=== PATIENT | female | born 1935 | race Two or more races ===

== ENCOUNTER → 2016-07-02 | Outpatient (CLI) | payer OTHER ==
[~2016-07-02] VITALS: Ht 154.9 cm; Wt 76.0 kg
[~2016-07-02] MED LIST: ADENOSINE 64 MG in GIVE UN-DILUTED 0 ML IV STA; ALBUTEROL SULF 2.5 MG/0.5ML(0.5%) NEB SOLN NEB ONE; ALBUTEROL SULF 2.5 MG/0.5ML(0.5%) NEB SOLN ONE; AMINOPHYLLINE 250 MG/10 ML VL IV ONE; AMINOPHYLLINE IV ONE; D5W 5% IV ONE; IPRATROPIUM BROM 0.5 MG/2.5ML INH SOL NEB ONE; IPRATROPIUM BROM 0.5 MG/2.5ML INH SOL ONE; LISI10TA6 PO; NEO500T PO; [UNRECOGNIZED DRUG - CODE] PO
== END | disposition home or self-care (01) ==
LOC: XY 08:14
PROVIDERS: ATTEND Internal Medicine Cardiovascular Disease
DX: I70.0 Atherosclerosis of aorta (principal); I31.3 Pericardial effusion (noninflammatory)
CPT/HCPCS: 78452; 93017; 93306; A9500; J0153; J0280

== ENCOUNTER 2016-08-10 08:22 | Emergency (ER) | payer OTHER ==
[~2016-08-10] VITALS: Ht 152.4 cm; Wt 70.3 kg
[~2016-08-10 08:22] MED LIST changes: -ADENOSINE 64 MG in GIVE UN-DILUTED 0 ML IV STA; -ALBUTEROL SULF 2.5 MG/0.5ML(0.5%) NEB SOLN NEB ONE; -ALBUTEROL SULF 2.5 MG/0.5ML(0.5%) NEB SOLN ONE; -AMINOPHYLLINE 250 MG/10 ML VL IV ONE; -AMINOPHYLLINE IV ONE; -D5W 5% IV ONE; -IPRATROPIUM BROM 0.5 MG/2.5ML INH SOL NEB ONE; -IPRATROPIUM BROM 0.5 MG/2.5ML INH SOL ONE
[2016-08-10 09:16] LABS: Basophils # (auto) 0.1 uL; Basophils % (auto) 0.7 % (0.0-2.0); CONDITION AutoValidated; Eosinophils # (auto) 0 uL; Eosinophils % (auto) 0.3 % (0.0-7.0); Hematocrit 43.8 % (36.0-46.0); Hemoglobin 14.4 g/dL (12.2-16.2); Lymphocytes # (auto) 2.6 uL; Lymphocytes % (auto) 22.9 % (10.0-50.0); Mean Corpuscular Hemoglobin 30.6 pg (28.0-32.0); Mean Corpuscular Volume 92.8 fL (80.0-100.0); Mean Platelet Volume 7.6 fL (7.4-10.4); Monocytes # (auto) 0.7 uL; Monocytes % (auto) 6.3 % (0.0-12.0); Neutrophils # (auto) 8.1 uL; Neutrophils % (auto) 69.8 % (37.0-80.0); Platelet Count (auto) 258 10^3/uL (140-450); White Blood Cell 11.6 10^3/uL (4.4-10.8)
[2016-08-10 09:35] LABS: Amylase 37 U/L (25-115)
[2016-08-10 09:41] LABS: Albumin 3.6 g/dL (3.4-5.0); Alkaline Phosphatase 54 U/L (45-117); Anion Gap 8 (5-15); Aspartate Aminotransferase 11 U/L (15-37); BUN/Creatinine Ratio 32.8; Bilirubin, Total 0.3 mg/dL (0.2-1.0); Blood Urea Nitrogen 21 mg/dL (7-18); Calcium 9.2 mg/dL (8.5-10.1); Carbon Dioxide 28 mmol/L (21-32); Chloride 105 mmol/L (98-107); GFR African American 115 mL/min; GFR Non-African American 95 mL/min; Glucose 96 mg/dL (74-106); Sodium 141 mmol/L (136-145); Total Protein 7.6 g/dL (6.4-8.2)
[2016-08-10] MEDS ORDERED: cloNIDine HCL 0.1 MG TAB PO ONE (11:00)
[2016-08-10] MEDS ORDERED: HYDROcodone-ACET 5/325MG TAB PO ONE (11:15)
[2016-08-10 12:27] LABS: Urine Bilirubin Negative (Negative); Urine Blood Negative /uL (Negative); Urine Color Yellow (Yellow); Urine Glucose Normal (Normal); Urine Ketone Negative (Negative); Urine Nitrite Negative (Negative); Urine RBC 1 /hpf (0 - 4); Urine Squamous Epithelial Cell FEW /hpf (<5); Urine Urobilinogen Normal (Negative); Urine pH 6.5 (5.0-8.0)
[2016-08-10] MEDS ORDERED: SODIUM CHLORIDE 0.9% 500 ML IV ONE (12:45)
[2016-08-10] MEDS ORDERED: cefTRIAXone 1GM/50ML D5W 50 ML IV ONE (12:45)
[2016-08-10 14:00] VITALS: BP 126/54
== END 2016-08-10 15:09 | disposition home or self-care (01) ==
LOC: ER 08:22
DX: S39.011A Strain of muscle, fascia and tendon of abdomen, initial encounter (principal); M19.90 Unspecified osteoarthritis, unspecified site; E78.5 Hyperlipidemia, unspecified; I10 Essential (primary) hypertension; Z88.1 Allergy status to other antibiotic agents; Z79.899 Other long term (current) drug therapy; X58.XXXA Exposure to other specified factors, initial encounter; Y93.89 Activity, other specified; Y92.89 Other specified places as the place of occurrence of the external cause; Y99.8 Other external cause status
CPT/HCPCS: 36415; 71010; 74176; 80053; 81001; 82150; 83690; 84484; 85025; 93005; 96365; 99285; J0696; J7030; J7040

== ENCOUNTER 2016-10-27 21:32 | Emergency (ER) | payer OTHER ==
[~2016-10-27] VITALS: Ht 152.4 cm; Wt 68.0 kg
[2016-10-27] MEDS ORDERED: cloNIDine HCL 0.1 MG TAB PO ONE (22:00)
[2016-10-27 22:33] LABS: Basophils # (auto) 0.1 uL; Basophils % (auto) 0.8 % (0.0-2.0); CONDITION Y; Eosinophils # (auto) 0.1 uL; Eosinophils % (auto) 1.2 % (0.0-7.0); Hemoglobin 14.4 g/dL (12.2-16.2); Lymphocytes # (auto) 3.3 uL; Lymphocytes % (auto) 31.9 % (10.0-50.0); Mean Corpuscular Hemoglobin 31.1 pg (28.0-32.0); Mean Corpuscular Hgb Conc. 33.5 g/dL (32.0-36.0); Mean Corpuscular Volume 93.1 fL (80.0-100.0); Mean Platelet Volume 7.8 fL (7.4-10.4); Monocytes # (auto) 0.9 uL; Monocytes % (auto) 8.3 % (0.0-12.0); Neutrophils # (auto) 5.9 uL; Neutrophils % (auto) 57.8 % (37.0-80.0); Platelet Count (auto) 309 10^3/uL (140-450); White Blood Cell 10.3 10^3/uL (4.4-10.8)
[2016-10-27 22:56] LABS: Albumin 3.6 g/dL (3.4-5.0); Anion Gap 6 (5-15); Aspartate Aminotransferase 8 U/L (15-37); BUN/Creatinine Ratio 19.6; Blood Urea Nitrogen 18 mg/dL (7-18); Calcium 9.1 mg/dL (8.5-10.1); Carbon Dioxide 29 mmol/L (21-32); Chloride 110 mmol/L (98-107); GFR African American 76 mL/min; GFR Non-African American 62 mL/min; Glucose 126 mg/dL (74-106); Potassium 3.7 mmol/L (3.5-5.1); Sodium 145 mmol/L (136-145)
[2016-10-27 23:11] LABS: Alkaline Phosphatase 68 U/L (45-117); Bilirubin, Total 0.2 mg/dL (0.2-1.0); Total Protein 7.4 g/dL (6.4-8.2)
[2016-10-28] MEDS ORDERED: HYDROcodone-ACET 7.5/325MG TAB PO ONE (01:15)
[2016-10-28 01:34] VITALS: BP 158/87
== END 2016-10-28 01:43 | disposition home or self-care (01) ==
LOC: ER 21:37
DX: I10 Essential (primary) hypertension (principal); M19.90 Unspecified osteoarthritis, unspecified site; E78.5 Hyperlipidemia, unspecified; R53.1 Weakness; M25.511 Pain in right shoulder; Z90.49 Acquired absence of other specified parts of digestive tract; Z88.1 Allergy status to other antibiotic agents; Z90.710 Acquired absence of both cervix and uterus; Z79.899 Other long term (current) drug therapy; R42 Dizziness and giddiness
CPT/HCPCS: 36415; 70450; 71020; 80053; 84484; 85025; 93005

== ENCOUNTER → 2017-02-10 | Outpatient (CLI) | payer OTHER ==
[2017-02-10 09:55] LABS: Urine RBC None Seen /hpf (0 - 4)
[2017-02-10 10:14] LABS: Urine Bilirubin Negative (Negative); Urine Blood Negative /uL (Negative); Urine Color Yellow (Yellow); Urine Glucose Normal (Normal); Urine Ketone Negative (Negative); Urine Mucus FEW (None Seen); Urine Nitrite Negative (Negative); Urine Squamous Epithelial Cell FEW /hpf (<5); Urine Urobilinogen Normal (Negative); Urine pH 6.5 (5.0-8.0)
[2017-02-10 10:23] LABS: Cholesterol 222 mg/dL (< 200); HDL Cholesterol 51 mg/dL (40-59); LDL Cholesterol 155 mg/dL (< 100); Triglycerides 168 mg/dL (< 150)
== END | disposition home or self-care (01) ==
LOC: LAB 09:36
PROVIDERS: ATTEND Internal Medicine
DX: I10 Essential (primary) hypertension (principal); R35.1 Nocturia; R53.83 Other fatigue
CPT/HCPCS: 36415; 80061; 81001; 82043; 83036; 84439; 84443

== ENCOUNTER → 2017-06-02 | Outpatient (CLI) | payer OTHER ==
[2017-06-02 10:09] LABS: BUN/Creatinine Ratio 28.1; Potassium 4.5 mmol/L (3.5-5.1)
[2017-06-02 10:10] LABS: Albumin 3.7 g/dL (3.4-5.0); Bilirubin, Total 0.4 mg/dL (0.2-1.0); Calcium 9.2 mg/dL (8.5-10.1)
== END | disposition home or self-care (01) ==
LOC: LAB 09:13
PROVIDERS: ATTEND Internal Medicine
DX: E78.00 Pure hypercholesterolemia, unspecified (principal); R73.03 Prediabetes; I10 Essential (primary) hypertension; J45.909 Unspecified asthma, uncomplicated
CPT/HCPCS: 36415; 80053; 80061; 82607; 83036

== ENCOUNTER → 2017-10-01 | Outpatient (CLI) | payer OTHER | END | disposition home or self-care (01) | LOC: XYW 11:16 | PROVIDERS: ATTEND Internal Medicine | DX: I11.0 Hypertensive heart disease with heart failure (principal); I50.9 Heart failure, unspecified; E78.5 Hyperlipidemia, unspecified; Z88.8 Allergy status to other drugs, medicaments and biological substances | CPT/HCPCS: 93306 ==

== ENCOUNTER → 2017-10-31 | Outpatient (CLI) | payer OTHER ==
[2017-10-31 12:41] LABS: Basophils # (auto) 0.1 uL; Eosinophils # (auto) 0.1 uL; Eosinophils % (auto) 0.8 % (0.0-7.0); Hematocrit 46.5 % (36.0-46.0); Hemoglobin 15.4 g/dL (12.2-16.2); Lymphocytes # (auto) 2.4 uL; Lymphocytes % (auto) 26.9 % (10.0-50.0); Mean Corpuscular Hemoglobin 30.8 pg (28.0-32.0); Mean Corpuscular Hgb Conc. 33.1 g/dL (32.0-36.0); Mean Corpuscular Volume 93.1 fL (80.0-100.0); Monocytes # (auto) 0.8 uL; Neutrophils # (auto) 5.5 uL; Neutrophils % (auto) 62.3 % (37.0-80.0); Platelet Count (auto) 256 10^3/uL (140-450); Red Blood Cells 4.99 10^6/uL (4.0-5.20); Red Cell Distribution Width 14.1 % (11.8-14.3); White Blood Cell 8.9 10^3/uL (4.4-10.8)
[2017-10-31 13:28] LABS: Albumin 3.9 g/dL (3.4-5.0); BUN/Creatinine Ratio 22.4; Bilirubin, Total 0.3 mg/dL (0.2-1.0); Calcium 9.1 mg/dL (8.5-10.1); Potassium 4.4 mmol/L (3.5-5.1); Total Protein 8.3 g/dL (6.4-8.2)
== END | disposition home or self-care (01) ==
LOC: LAB 12:02
PROVIDERS: ATTEND Internal Medicine
DX: I11.0 Hypertensive heart disease with heart failure (principal); I50.32 Chronic diastolic (congestive) heart failure; E78.5 Hyperlipidemia, unspecified; Z90.710 Acquired absence of both cervix and uterus
CPT/HCPCS: 36415; 80053; 83880; 84439; 84443; 85025

== ENCOUNTER 2018-05-22 07:09 | Emergency (ER) | payer OTHER ==
[~2018-05-22] VITALS: Ht 152.4 cm; Wt 72.6 kg
[~2018-05-22 07:09] MED LIST changes: +ALBUAER3 IN; +AMLO5TAB13 PO; +ATOR10TA PO; +GABA100C9 PO; +MELO1TAB73 PO; +METO-169 PO; -NEO500T PO; +PANT40TA2 PO; -[UNRECOGNIZED DRUG - CODE] PO
[2018-05-22 07:20] VITALS: BP 135/52
[2018-05-22] MEDS ORDERED: methylPREDNISolone SOD SUCC 125 MG/2 ML VL IM ONE (08:45)
[2018-05-22] MEDS ORDERED: cefTRIAXone SOD 1,000 MG VL IM ONE (08:45)
[2018-05-22] MEDS ORDERED: ALBUTEROL SULF 2.5 MG/0.5ML(0.5%) NEB SOLN NEB ONE (08:45)
[2018-05-22] MEDS ORDERED: IPRATROPIUM BROM 0.5 MG/2.5ML INH SOL NEB ONE (08:45)
== END 2018-05-22 09:39 | disposition home or self-care (01) ==
LOC: ER 07:09
DX: J20.9 Acute bronchitis, unspecified (principal); H66.93 Otitis media, unspecified, bilateral; J02.9 Acute pharyngitis, unspecified; J44.9 Chronic obstructive pulmonary disease, unspecified; E78.5 Hyperlipidemia, unspecified; I10 Essential (primary) hypertension; Z90.710 Acquired absence of both cervix and uterus
CPT/HCPCS: 71046; 94640; 96372; 99283; J0696; J2930; J7611; J7644; 93005

== ENCOUNTER → 2018-12-07 | Outpatient (CLI) | payer MEDICARE, OTHER ==
[~2018-12-07] MED LIST changes: -AMLO5TAB13 PO; +AMLO5TAB15 PO
[2018-12-07 13:49] LABS: Basophils # (auto) 0.1 uL; Basophils % (auto) 1.2 % (0.0-2.0); Eosinophils # (auto) 0.1 uL; Eosinophils % (auto) 0.7 % (0.0-7.0); Hematocrit 47.3 % (36.0-46.0); Hemoglobin 15.4 g/dL (12.2-16.2); Lymphocytes # (auto) 2.5 uL; Lymphocytes % (auto) 27.6 % (10.0-50.0); Mean Corpuscular Hemoglobin 30.7 pg (28.0-32.0); Mean Corpuscular Hgb Conc. 32.6 g/dL (32.0-36.0); Mean Corpuscular Volume 94.4 fL (80.0-100.0); Monocytes # (auto) 0.7 uL; Neutrophils # (auto) 5.7 uL; Neutrophils % (auto) 62.5 % (37.0-80.0); Platelet Count (auto) 242 10^3/uL (140-450); Red Cell Distribution Width 14.2 % (11.8-14.3); White Blood Cell 9.2 10^3/uL (4.4-10.8)
[2018-12-07 15:08] LABS: Albumin 3.6 g/dL (3.4-5.0); BUN/Creatinine Ratio 30.1; Potassium 4.1 mmol/L (3.5-5.1)
[2018-12-07 15:12] LABS: Bilirubin, Total 0.3 mg/dL (0.2-1.0); Total Protein 7.7 g/dL (6.4-8.2)
== END | disposition home or self-care (01) ==
LOC: LAB 13:28
PROVIDERS: ATTEND Internal Medicine
DX: I10 Essential (primary) hypertension (principal); R06.09 Other forms of dyspnea
CPT/HCPCS: 36415; 80053; 83880; 84439; 84443; 85025; 85652

== ENCOUNTER → 2019-07-20 | Outpatient (CLI) | payer MEDICARE, OTHER ==
[~2019-07-20] MED LIST changes: +ALBUTEROL SULF 2.5 MG/0.5ML(0.5%) NEB SOLN ONE
== END | disposition home or self-care (01) ==
LOC: RT 09:06
PROVIDERS: ATTEND Internal Medicine
DX: R06.09 Other forms of dyspnea (principal)
CPT/HCPCS: 94060

== ENCOUNTER → 2019-10-26 | Outpatient (CLI) | payer MEDICARE, OTHER ==
[~2019-10-26] MED LIST changes: -ALBUTEROL SULF 2.5 MG/0.5ML(0.5%) NEB SOLN ONE; +LISI-648 PO; -LISI10TA6 PO
== END | disposition home or self-care (01) ==
LOC: LAB 14:39
PROVIDERS: ATTEND Internal Medicine Pulmonary Disease
DX: R06.09 Other forms of dyspnea (principal)

== ENCOUNTER → 2019-12-07 | Outpatient (CLI) | payer MEDICARE, OTHER ==
[2019-12-07 09:59] LABS: Basophils # (auto) 0.1 10 ^3/uL (0-0.2); Eosinophils # (auto) 0 10 ^3/uL (0-0.8); Eosinophils % (auto) 0.7 % (0.0-7.0); Hematocrit 46.8 % (36.0-46.0); Hemoglobin 15.6 g/dL (12.2-16.2); Lymphocytes # (auto) 2.4 10 ^3/uL (0.4-5.4); Lymphocytes % (auto) 32.2 % (10.0-50.0); Mean Corpuscular Hemoglobin 31.6 pg (28.0-32.0); Mean Corpuscular Hgb Conc. 33.2 g/dL (32.0-36.0); Mean Corpuscular Volume 95.1 fL (80.0-100.0); Monocytes # (auto) 0.7 10 ^3/uL (0-1.3); Monocytes % (auto) 8.8 % (0.0-12.0); Neutrophils # (auto) 4.4 10 ^3/uL (1.6-8.6); Neutrophils % (auto) 57.3 % (37.0-80.0); Nucleated Red Blood Cells % 0.1 %; Platelet Count (auto) 262 10^3/uL (140-450); Red Blood Cells 4.92 10^6/uL (4.0-5.20); Red Cell Distribution Width 14.3 % (11.8-14.3); White Blood Cell 7.6 10^3/uL (4.4-10.8)
[2019-12-07 10:04] LABS: Urine Bacteria NONE SEEN /hpf (None Seen); Urine Blood Negative /uL (Negative); Urine Hyaline Cast FEW /lpf (0 - 2); Urine Specific Gravity 1.004 (1.001-1.035); Urine WBC <1 /hpf (0 - 5)
[2019-12-07 10:55] LABS: Albumin 3.8 g/dL (3.4-5.0); Potassium 4.6 mmol/L (3.5-5.1)
[2019-12-07 11:03] LABS: BUN/Creatinine Ratio 29.1; Bilirubin, Total 0.4 mg/dL (0.2-1.0); Calcium 9.7 mg/dL (8.5-10.1); Total Protein 7.8 g/dL (6.4-8.2)
== END | disposition home or self-care (01) ==
LOC: LAB 09:25
PROVIDERS: ATTEND Internal Medicine
DX: I10 Essential (primary) hypertension (principal); J44.9 Chronic obstructive pulmonary disease, unspecified
CPT/HCPCS: 36415; 80053; 80061; 81001; 84439; 84443; 85025; 85652

== ENCOUNTER → 2019-12-20 | Outpatient (CLI) | payer MEDICARE, OTHER ==
[2019-12-20 12:34] LABS: CRP High Sensitivity 1.11 mg/dL (< 0.3)
== END | disposition home or self-care (01) ==
LOC: LAB 11:06
PROVIDERS: ATTEND Internal Medicine Rheumatology
DX: M79.7 Fibromyalgia (principal); M06.4 Inflammatory polyarthropathy; M15.0 Primary generalized (osteo)arthritis
CPT/HCPCS: 36415; 82550; 85652; 86038; 86141; 86200; 86431

== ENCOUNTER 2020-11-10 23:24 | Inpatient (IN) | payer MEDICARE, OTHER ==
[~2020-11-10] VITALS: Ht 152.4 cm; Wt 71.1 kg
[~2020-11-10 23:24] MED LIST changes: +AMLO-489 PO; -AMLO5TAB15 PO; -LISI-648 PO; +LISI-716 PO; -METO-169 PO; +METO-289 PO
[2020-11-10] MEDS ORDERED: ALBUTEROL SULF 2.5 MG/0.5ML(0.5%) NEB SOLN NEB ONE (23:45)
[2020-11-10] MEDS ORDERED: DexAMETHasone SOD PHOS 10MG/1ML VIAL INJ IV ONE (23:45)
[2020-11-11 00:36] LABS: Basophils # (auto) 0.1 10 ^3/uL (0-0.2); Basophils % (auto) 1.3 % (0.0-2.0); Eosinophils # (auto) 0.2 10 ^3/uL (0-0.8); Eosinophils % (auto) 3.4 % (0.0-7.0); Hematocrit 32.6 % (36.0-46.0); Hemoglobin 10.9 g/dL (12.2-16.2); Lymphocytes # (auto) 1.3 10 ^3/uL (0.4-5.4); Lymphocytes % (auto) 18.1 % (10.0-50.0); Mean Corpuscular Hemoglobin 31.5 pg (28.0-32.0); Mean Corpuscular Hgb Conc. 33.4 g/dL (32.0-36.0); Mean Corpuscular Volume 94.4 fL (80.0-100.0); Monocytes # (auto) 0.7 10 ^3/uL (0-1.3); Monocytes % (auto) 9.4 % (0.0-12.0); Neutrophils # (auto) 4.9 10 ^3/uL (1.6-8.6); Neutrophils % (auto) 67.8 % (37.0-80.0); Nucleated Red Blood Cells % 0.1 %; Red Blood Cells 3.45 10^6/uL (4.0-5.20); White Blood Cell 7.2 10^3/uL (4.4-10.8)
[2020-11-11 00:39] LABS: Albumin 3.2 g/dL (3.4-5.0); Anion Gap 6 (5-15); BUN/Creatinine Ratio 29.7; Blood Urea Nitrogen 19 mg/dL (7-18); Carbon Dioxide 31 mmol/L (21-32); Chloride 103 mmol/L (98-107); GFR African American 114 mL/min; GFR Non-African American 94 mL/min; Glucose 124 mg/dL (74-106); Lipase 141 U/L (73-393); Potassium 4.3 mmol/L (3.5-5.1); Sodium 140 mmol/L (136-145)
[2020-11-11 00:45] LABS: Alanine Aminotransferase 19 U/L (13-56); Alkaline Phosphatase 66 U/L (45-117); Aspartate Aminotransferase 7 U/L (15-37); Bilirubin, Total 0.2 mg/dL (0.2-1.0); Total Protein 7.1 g/dL (6.4-8.2)
[2020-11-11] MEDS ORDERED: DOCUSATE SOD 100 MG CAP PO PRN (02:45)
[2020-11-11] MEDS ORDERED: IPRATROPIUM BROM 0.5 MG/2.5ML INH SOL NEB PRN (02:45)
[2020-11-11] MEDS ORDERED: MORPHINE SULFATE INJECTION 2 MG/ML SYRG IV PRN (02:45)
[2020-11-11] MEDS ORDERED: ONDANSETRON HCL 4 MG/2 ML VIAL IV PRN (02:45)
[2020-11-11] MEDS ORDERED: ACETAMINOPHEN 325 MG TAB PO PRN (02:45)
[2020-11-11] MEDS ORDERED: NITROGLYCERIN 0.4 MG SL TAB SL PRN (02:45)
[2020-11-11] MEDS ORDERED: ALBUTEROL SULF 2.5 MG/0.5ML(0.5%) NEB SOLN NEB PRN (02:45)
[2020-11-11] MEDS ORDERED: methylPREDNISolone SOD SUCC 40 MG/ML VL IV SCH (06:00)
[2020-11-11] MEDS: SODIUM CHLOR 0.9% PF (SALINE LOCK) 10ML VIAL/SYR IV SCH ×3 (06:31→20:50)
[2020-11-11 07:33] LABS: Basophils # (auto) 0 10 ^3/uL (0-0.2); Basophils % (auto) 0.4 % (0.0-2.0); Eosinophils # (auto) 0 10 ^3/uL (0-0.8); Eosinophils % (auto) 0.3 % (0.0-7.0); Hematocrit 34.6 % (36.0-46.0); Hemoglobin 11.5 g/dL (12.2-16.2); Lymphocytes # (auto) 1.1 10 ^3/uL (0.4-5.4); Lymphocytes % (auto) 13.7 % (10.0-50.0); Mean Corpuscular Hemoglobin 31.4 pg (28.0-32.0); Mean Corpuscular Hgb Conc. 33.2 g/dL (32.0-36.0); Mean Corpuscular Volume 94.6 fL (80.0-100.0); Monocytes # (auto) 0.1 10 ^3/uL (0-1.3); Monocytes % (auto) 1.2 % (0.0-12.0); Neutrophils # (auto) 6.6 10 ^3/uL (1.6-8.6); Neutrophils % (auto) 84.4 % (37.0-80.0); Red Blood Cells 3.65 10^6/uL (4.0-5.20); Red Cell Distribution Width 13.8 % (11.8-14.3); White Blood Cell 7.8 10^3/uL (4.4-10.8)
[2020-11-11 07:48] LABS: Albumin 3.5 g/dL (3.4-5.0); Calcium 9.6 mg/dL (8.5-10.1); Potassium 4.5 mmol/L (3.5-5.1)
[2020-11-11 07:50] LABS: BUN/Creatinine Ratio 28.3
[2020-11-11 07:53] LABS: Bilirubin, Total 0.2 mg/dL (0.2-1.0); Total Protein 7.6 g/dL (6.4-8.2)
[2020-11-11] MEDS: hydrALAZINE HCL 20 MG/ML VL IV PRN ×2 (08:19→18:16)
[2020-11-11 09:00] VITALS: BP 180/86
[2020-11-11] MEDS: ASPirin 81 mg TAB PO SCH (09:23)
[2020-11-11] MEDS: MULTIPLE VITAMIN TAB PO SCH (09:23)
[2020-11-11] MEDS: FUROSEMIDE 40 MG/4 ML VIAL IV SCH (09:23)
[2020-11-11] MEDS: FAMOTIDINE (10MG/ML) 2ML VL IV SCH ×2 (09:31→20:49)
[2020-11-11] MEDS ORDERED: ASCORBIC ACID 500 MG TAB PO SCH (10:00)
[2020-11-11] MEDS ORDERED: ZINC SULFATE 220mg CAP or TAB PO SCH (10:00)
[2020-11-11 11:30] VITALS: BP 118/72
[2020-11-11 13:00] VITALS: BP 150/74
[2020-11-11 17:00] VITALS: BP 176/76
[2020-11-11] MEDS ORDERED: HYDR200T36 PO (17:51)
[2020-11-11] MEDS ORDERED: ISOS1TAB28 PO (17:51)
[2020-11-11] MEDS ORDERED: APIX5TAB PO (17:51)
[2020-11-11] MEDS ORDERED: CARV12.544 PO (17:51)
[2020-11-11] MEDS ORDERED: BUME0.5T4 PO (17:51)
[2020-11-11] MEDS ORDERED: ESCI5TAB PO (17:51)
[2020-11-11] MEDS ORDERED: MORPHINE SULFATE INJECTION 2 MG/ML SYRG IV ONE (19:30)
[2020-11-11] MEDS ORDERED: ALPRAZolam 0.5 MG TAB PO ONE (19:30)
[2020-11-11] MEDS: ATORVASTATIN 20 MG TAB PO SCH (20:50)
[2020-11-11] MEDS ORDERED: NITROGLYCERIN 0.2MG/HR TOPICAL PATCH TD ONE (21:30)
[2020-11-11 22:00] VITALS: BP 135/66
[2020-11-11] MEDS: CARVEDILOL 12.5 MG TAB PO SCH (22:06)
[2020-11-11] MEDS: ENOXAPARIN SOD 100 MG/1 ML SYRINGE SC SCH (22:06)
[2020-11-11] MEDS ORDERED: ASPirin 81 mg TAB PO ONE (23:45)
[2020-11-11] MEDS ORDERED: LISINOPRIL 10 MG TAB PO ONE (23:45)
[2020-11-12 05:00] VITALS: BP 148/53
[2020-11-12] MEDS: SODIUM CHLOR 0.9% PF (SALINE LOCK) 10ML VIAL/SYR IV SCH ×3 (06:00→20:53)
[2020-11-12 06:14] LABS: Basophils # (auto) 0 10 ^3/uL (0-0.2); Basophils % (auto) 0.4 % (0.0-2.0); Eosinophils # (auto) 0 10 ^3/uL (0-0.8); Hematocrit 35.6 % (36.0-46.0); Hemoglobin 11.4 g/dL (12.2-16.2); Lymphocytes # (auto) 1.2 10 ^3/uL (0.4-5.4); Lymphocytes % (auto) 10.7 % (10.0-50.0); Mean Corpuscular Hemoglobin 30.6 pg (28.0-32.0); Mean Corpuscular Hgb Conc. 32.1 g/dL (32.0-36.0); Mean Corpuscular Volume 95.3 fL (80.0-100.0); Monocytes % (auto) 8.9 % (0.0-12.0); Neutrophils # (auto) 9.1 10 ^3/uL (1.6-8.6); Red Blood Cells 3.73 10^6/uL (4.0-5.20); White Blood Cell 11.3 10^3/uL (4.4-10.8)
[2020-11-12 06:29] LABS: Albumin 3.2 g/dL (3.4-5.0); BUN/Creatinine Ratio 33.3; Calcium 9.2 mg/dL (8.5-10.1); Potassium 4.4 mmol/L (3.5-5.1)
[2020-11-12 06:31] LABS: Bilirubin, Total 0.2 mg/dL (0.2-1.0); Total Protein 7.3 g/dL (6.4-8.2)
[2020-11-12 09:00] VITALS: BP 116/60
[2020-11-12] MEDS: MULTIPLE VITAMIN TAB PO SCH (11:06)
[2020-11-12] MEDS: FAMOTIDINE (10MG/ML) 2ML VL IV SCH ×2 (11:06→20:53)
[2020-11-12] MEDS: ASPirin 81 mg TAB PO SCH (11:06)
[2020-11-12] MEDS: FUROSEMIDE 40 MG/4 ML VIAL IV SCH (11:07)
[2020-11-12] MEDS: CARVEDILOL 12.5 MG TAB PO SCH ×2 (11:07→21:47)
[2020-11-12] MEDS: LISINOPRIL 10 MG TAB PO SCH (11:07)
[2020-11-12] MEDS: ENOXAPARIN SOD 100 MG/1 ML SYRINGE SC SCH ×2 (11:51→20:53)
[2020-11-12] MEDS ORDERED: ALBUTEROL SULF 2.5 MG/0.5ML(0.5%) NEB SOLN NEB PRN (12:00)
[2020-11-12 12:30] VITALS: BP 121/50
[2020-11-12 15:47] VITALS: BP 121/50
[2020-11-12 17:00] VITALS: BP 143/59
[2020-11-12] MEDS: ATORVASTATIN 20 MG TAB PO SCH (21:47)
[2020-11-12 22:00] VITALS: BP 110/74
[2020-11-12] MEDS ORDERED: TEMAZEPAM 15 MG CAP PO PRN (23:00)
[2020-11-13] MEDS: HYDROcodone-ACET 5/325MG TAB PO PRN ×2 (02:07→22:00)
[2020-11-13 05:22] VITALS: BP 119/50
[2020-11-13] MEDS: SODIUM CHLOR 0.9% PF (SALINE LOCK) 10ML VIAL/SYR IV SCH ×3 (06:00→21:59)
[2020-11-13] MEDS ORDERED: REGADENOSON 0.4 MG/5 ML SYRG IV ONE (08:45)
[2020-11-13 08:58] LABS: Basophils # (auto) 0.1 10 ^3/uL (0-0.2); Basophils % (auto) 1.1 % (0.0-2.0); Eosinophils # (auto) 0.1 10 ^3/uL (0-0.8); Eosinophils % (auto) 1.1 % (0.0-7.0); Hematocrit 35.7 % (36.0-46.0); Hemoglobin 11.5 g/dL (12.2-16.2); Lymphocytes # (auto) 2.2 10 ^3/uL (0.4-5.4); Lymphocytes % (auto) 25.6 % (10.0-50.0); Mean Corpuscular Hemoglobin 30.5 pg (28.0-32.0); Mean Corpuscular Hgb Conc. 32.2 g/dL (32.0-36.0); Mean Corpuscular Volume 94.8 fL (80.0-100.0); Monocytes # (auto) 0.9 10 ^3/uL (0-1.3); Monocytes % (auto) 10.5 % (0.0-12.0); Neutrophils # (auto) 5.3 10 ^3/uL (1.6-8.6); Neutrophils % (auto) 61.7 % (37.0-80.0); Nucleated Red Blood Cells % 0.1 %; Red Blood Cells 3.77 10^6/uL (4.0-5.20); White Blood Cell 8.6 10^3/uL (4.4-10.8)
[2020-11-13 09:11] LABS: Potassium 4.8 mmol/L (3.5-5.1)
[2020-11-13 09:13] VITALS: BP 118/45
[2020-11-13 09:13] LABS: Magnesium 2.4 mg/dL (1.6-2.6)
[2020-11-13 09:16] VITALS: BP 139/86
[2020-11-13] MEDS: FUROSEMIDE 40 MG/4 ML VIAL IV SCH (10:00)
[2020-11-13] MEDS: CARVEDILOL 12.5 MG TAB PO SCH ×2 (10:00→22:01)
[2020-11-13] MEDS: LISINOPRIL 10 MG TAB PO SCH (10:00)
[2020-11-13] MEDS: ASPirin 81 mg TAB PO SCH (10:00)
[2020-11-13] MEDS: FAMOTIDINE (10MG/ML) 2ML VL IV SCH ×2 (10:00→21:59)
[2020-11-13] MEDS: MULTIPLE VITAMIN TAB PO SCH (10:00)
[2020-11-13] MEDS: ENOXAPARIN SOD 100 MG/1 ML SYRINGE SC SCH ×2 (10:00→21:59)
[2020-11-13] MEDS ORDERED: ONDANSETRON HCL 4 MG/2 ML VIAL IV ONE (10:15)
[2020-11-13 13:00] VITALS: BP 141/52
[2020-11-13] MEDS ORDERED: ONDANSETRON HCL 4 MG/2 ML VIAL ONE (16:09)
[2020-11-13] MEDS: ONDANSETRON HCL 4 MG/2 ML VIAL IV PRN (16:15)
[2020-11-13 17:30] VITALS: BP 153/47
[2020-11-13] MEDS: ATORVASTATIN 20 MG TAB PO SCH (21:59)
[2020-11-13 22:00] VITALS: BP 117/45
[2020-11-14] MEDS: ONDANSETRON HCL 4 MG/2 ML VIAL IV PRN (04:17)
[2020-11-14 05:00] VITALS: BP 138/99
[2020-11-14] MEDS: SODIUM CHLOR 0.9% PF (SALINE LOCK) 10ML VIAL/SYR IV SCH ×2 (05:53→13:26)
[2020-11-14 07:26] LABS: Potassium 4.5 mmol/L (3.5-5.1)
[2020-11-14 07:32] LABS: BUN/Creatinine Ratio 46.8; Calcium 9.3 mg/dL (8.5-10.1); Magnesium 2.7 mg/dL (1.6-2.6)
[2020-11-14 09:00] VITALS: BP 126/50
[2020-11-14] MEDS: ASPirin 81 mg TAB PO SCH (09:45)
[2020-11-14] MEDS: FUROSEMIDE 40 MG/4 ML VIAL IV SCH (09:45)
[2020-11-14] MEDS: FAMOTIDINE (10MG/ML) 2ML VL IV SCH (09:45)
[2020-11-14] MEDS: MULTIPLE VITAMIN TAB PO SCH (09:46)
[2020-11-14] MEDS: LISINOPRIL 10 MG TAB PO SCH (09:46)
[2020-11-14] MEDS: ENOXAPARIN SOD 100 MG/1 ML SYRINGE SC SCH (09:46)
[2020-11-14] MEDS: CARVEDILOL 12.5 MG TAB PO SCH (09:46)
[2020-11-14] MEDS ORDERED: FURO1TAB33 PO (11:03)
[2020-11-14] MEDS ORDERED: PANT40TA2 PO (12:13)
[2020-11-14 12:59] VITALS: BP 129/46
[2020-11-14 13:48] VITALS: BP 129/46
== END 2020-11-14 15:30 | disposition home health service (06) | DRG 291 ==
LOC: EDBD 23:24 → ER 23:24 → OVERFLOW 11-11 02:37 → WEST WING 11-11 07:30
PROVIDERS: ADMIT Nurse Practitioner Family; ATTEND Internal Medicine
DX: I11.0 Hypertensive heart disease with heart failure (principal); J96.21 Acute and chronic respiratory failure with hypoxia; J44.1 Chronic obstructive pulmonary disease with (acute) exacerbation; I27.20 Pulmonary hypertension, unspecified; I50.33 Acute on chronic diastolic (congestive) heart failure; I20.0 Unstable angina; E66.9 Obesity, unspecified; E78.5 Hyperlipidemia, unspecified; I50.82 Biventricular heart failure; G47.33 Obstructive sleep apnea (adult) (pediatric); R07.89 Other chest pain; M19.90 Unspecified osteoarthritis, unspecified site; Z20.822 Contact with and (suspected) exposure to COVID-19; Z86.711 Personal history of pulmonary embolism; Z88.2 Allergy status to sulfonamides; Z86.718 Personal history of other venous thrombosis and embolism; Z90.49 Acquired absence of other specified parts of digestive tract; Z90.710 Acquired absence of both cervix and uterus
CPT/HCPCS: 36415; 36600; 71045; 78452; 80048; 80053; 80061; 82805; 83036; 83690; 83735; 83880; 84132; 84484; 85025; 87426; 93005; 93017; 93306; 94640; 96374; 96375; G0378; J1100; J2405; J3490

== ENCOUNTER 2021-10-09 06:29 | Emergency (ER) | payer MEDICARE, OTHER ==
[~2021-10-09] VITALS: Ht 152.4 cm; Wt 72.0 kg
[2021-10-09 06:29] VITALS: BP 192/68
[~2021-10-09 06:29] MED LIST changes: +APIX5TAB PO; +CARV12.544 PO; +ESCI5TAB PO; +FURO1TAB33 PO; +HYDR200T36 PO; +ISOS1TAB28 PO; -MELO1TAB73 PO; -METO-289 PO
[2021-10-09 07:45] LABS: Basophils # (auto) 0.1 10 ^3/uL (0-0.2); Eosinophils # (auto) 0.3 10 ^3/uL (0-0.8); Eosinophils % (auto) 3.7 % (0.0-7.0); Hematocrit 31.4 % (36.0-46.0); Lymphocytes # (auto) 1.3 10 ^3/uL (0.4-5.4); Lymphocytes % (auto) 15.5 % (10.0-50.0); Mean Corpuscular Hemoglobin 29.8 pg (28.0-32.0); Mean Corpuscular Volume 93.2 fL (80.0-100.0); Monocytes # (auto) 0.7 10 ^3/uL (0-1.3); Monocytes % (auto) 8.6 % (0.0-12.0); Neutrophils % (auto) 71.2 % (37.0-80.0); Nucleated Red Blood Cells % 0.1 %; Red Blood Cells 3.37 10^6/uL (4.0-5.20); Red Cell Distribution Width 16.9 % (11.8-14.3); White Blood Cell 8.4 10^3/uL (4.4-10.8)
[2021-10-09 07:58] LABS: Albumin 3.3 g/dL (3.4-5.0); BUN/Creatinine Ratio 17.7; Calcium 9.1 mg/dL (8.5-10.1); Potassium 4.1 mmol/L (3.5-5.1)
[2021-10-09 08:01] LABS: Bilirubin, Total 0.2 mg/dL (0.2-1.0); Total Protein 7.6 g/dL (6.4-8.2)
[2021-10-09] MEDS ORDERED: HYDROcodone-ACET 10/325MG TAB PO ONE (13:45)
== END 2021-10-09 15:23 | disposition home or self-care (01) ==
LOC: EDUNIT# 06:29 → EDBD 06:29 → ER 06:29
DX: S01.81XA Laceration without foreign body of other part of head, initial encounter (principal); J44.9 Chronic obstructive pulmonary disease, unspecified; E78.5 Hyperlipidemia, unspecified; I10 Essential (primary) hypertension; Z90.49 Acquired absence of other specified parts of digestive tract; Z90.710 Acquired absence of both cervix and uterus; Z79.899 Other long term (current) drug therapy; Z88.2 Allergy status to sulfonamides; W18.39XA Other fall on same level, initial encounter; Y93.89 Activity, other specified; Y92.89 Other specified places as the place of occurrence of the external cause; Y99.8 Other external cause status
CPT/HCPCS: 12014; 36415; 70450; 71045; 72192; 80053; 84484; 85025; 99285; J2001

== ENCOUNTER 2021-12-26 14:25 | Emergency (ER) | payer MEDICARE, OTHER ==
[~2021-12-26] VITALS: Ht 152.4 cm; Wt 67.2 kg
[2021-12-26 15:34] VITALS: BP 140/64
[2021-12-26] MEDS ORDERED: SODIUM CHLORIDE 0.9% 1,000 ML IV ONE ×2 (16:00)
[2021-12-26 16:22] LABS: Basophils % (auto) 1.4 % (0.0-2.0); Eosinophils # (auto) 0.1 10 ^3/uL (0-0.8); Eosinophils % (auto) 1.5 % (0.0-7.0); Lymphocytes # (auto) 1.2 10 ^3/uL (0.4-5.4); Lymphocytes % (auto) 15.7 % (10.0-50.0); Monocytes # (auto) 0.8 10 ^3/uL (0-1.3); Neutrophils # (auto) 5.3 10 ^3/uL (1.6-8.6); Neutrophils % (auto) 70.4 % (37.0-80.0); Nucleated Red Blood Cells % 0.1 %; White Blood Cell 7.5 10^3/uL (4.4-10.8)
[2021-12-26 16:23] LABS: Basophils # (auto) 0.1 10 ^3/uL (0-0.2); Hematocrit 26.6 % (36.0-46.0); Hemoglobin 8.9 g/dL (12.2-16.2); Mean Corpuscular Hemoglobin 30.2 pg (28.0-32.0); Mean Corpuscular Hgb Conc. 33.3 g/dL (32.0-36.0); Mean Corpuscular Volume 90.7 fL (80.0-100.0); Red Blood Cells 2.93 10^6/uL (4.0-5.20); Red Cell Distribution Width 15.3 % (11.8-14.3)
[2021-12-26 16:41] LABS: Albumin 3.1 g/dL (3.4-5.0); Calcium 8.9 mg/dL (8.5-10.1); Potassium 4.4 mmol/L (3.5-5.1)
[2021-12-26 16:45] LABS: Bilirubin, Total 0.4 mg/dL (0.2-1.0); Total Protein 7.1 g/dL (6.4-8.2)
[2021-12-26 17:49] LABS: Amphetamine Screen, Urine NEGATIVE (NEGATIVE); Barbiturate Scree,Urine NEGATIVE (NEGATIVE); Benzodiazephine Screen, Urine NEGATIVE (NEGATIVE); Cannabinoid Screen, Urine NEGATIVE (NEGATIVE); Cocaine Screen, Urine NEGATIVE (NEGATIVE); Opiate Scree,Urine NEGATIVE (NEGATIVE); Phencyclidine Screen, Urine NEGATIVE (NEGATIVE)
[2021-12-26 18:16] LABS: Urine Bacteria FEW /hpf (None Seen); Urine WBC 27 /hpf (0 - 5)
[2021-12-26 18:22] LABS: Urine Blood Normal /uL (Negative)
[2021-12-26] MEDS ORDERED: CIPR-173 PO (18:39)
[2021-12-26] MEDS ORDERED: LORA-655 PO (18:39)
== END 2021-12-26 21:12 | disposition home or self-care (01) ==
LOC: ER 14:25
DX: N39.0 Urinary tract infection, site not specified (principal); R44.1 Visual hallucinations; F05 Delirium due to known physiological condition; E44.1 Mild protein-calorie malnutrition; R94.31 Abnormal electrocardiogram [ECG] [EKG]; Z68.28 Body mass index [BMI] 28.0-28.9, adult
CPT/HCPCS: 36415; 70450; 71046; 80053; 80307; 81001; 85025; 93005

== ENCOUNTER 2022-01-09 04:47 | Inpatient (IN) | payer MEDICARE, OTHER ==
[~2022-01-09] VITALS: Ht 160 cm; Wt 70.3 kg
[~2022-01-09 04:47] MED LIST changes: +CIPR-173 PO; +LORA-655 PO
[2022-01-09 05:41] LABS: Basophils # (auto) 0.1 10 ^3/uL (0-0.2); Basophils % (auto) 0.8 % (0.0-2.0); Eosinophils # (auto) 0.2 10 ^3/uL (0-0.8); Eosinophils % (auto) 2.2 % (0.0-7.0); Hematocrit 26.8 % (36.0-46.0); Hemoglobin 8.9 g/dL (12.2-16.2); Lymphocytes # (auto) 1.2 10 ^3/uL (0.4-5.4); Lymphocytes % (auto) 10.7 % (10.0-50.0); Mean Corpuscular Hemoglobin 30.7 pg (28.0-32.0); Mean Corpuscular Hgb Conc. 33.1 g/dL (32.0-36.0); Mean Corpuscular Volume 92.7 fL (80.0-100.0); Monocytes # (auto) 1.2 10 ^3/uL (0-1.3); Neutrophils # (auto) 8.2 10 ^3/uL (1.6-8.6); Neutrophils % (auto) 75.3 % (37.0-80.0); Nucleated Red Blood Cells % 0.2 %; Red Blood Cells 2.89 10^6/uL (4.0-5.20); Red Cell Distribution Width 15.9 % (11.8-14.3); White Blood Cell 10.9 10^3/uL (4.4-10.8)
[2022-01-09 05:46] LABS: Albumin 3.4 g/dL (3.4-5.0); BUN/Creatinine Ratio 25.4; Calcium 8.9 mg/dL (8.5-10.1); Potassium 4.9 mmol/L (3.5-5.1)
[2022-01-09 05:57] LABS: Bilirubin, Total 0.4 mg/dL (0.2-1.0); Total Protein 7.3 g/dL (6.4-8.2)
[2022-01-09] MEDS ORDERED: SODIUM CHLORIDE 0.9% 1,000 ML IV ONE (07:00)
[2022-01-09 08:02] LABS: Urine Bacteria FEW /hpf (None Seen); Urine Blood Negative /uL (Negative); Urine Hyaline Cast FEW /lpf (0 - 2); Urine Specific Gravity 1.015 (1.001-1.035); Urine WBC 21 /hpf (0 - 5); Urine WBC Clumps PRESENT /hpf (None Seen)
[2022-01-09] MEDS ORDERED: FUROSEMIDE 40 MG/4 ML VIAL IV ONE (09:15)
[2022-01-09] MEDS ORDERED: ONDANSETRON HCL 4 MG/2 ML VIAL IV PRN (10:00)
[2022-01-09] MEDS ORDERED: NITROGLYCERIN 0.4 MG SL TAB SL PRN (10:00)
[2022-01-09] MEDS ORDERED: MORPHINE SULFATE INJ 2 MG/ml SYRG IV PRN (10:00)
[2022-01-09] MEDS: FUROSEMIDE 20 MG/2 ML VIAL IV SCH (10:00)
[2022-01-09] MEDS ORDERED: LISINOPRIL 10 MG TAB PO SCH (10:00)
[2022-01-09] MEDS: PANTOPRAZOLE 40 MG/10 ML VIAL INJ IV SCH (10:13)
[2022-01-09] MEDS: ENOXAPARIN SOD 40 MG/0.4 ML SYRINGE SC SCH (10:13)
[2022-01-09 19:28] VITALS: BP 153/60
[2022-01-09] MEDS ORDERED: ALBUTEROL SULF 2.5 MG/0.5ML(0.5%) NEB SOLN NEB PRN (19:45)
[2022-01-09] MEDS ORDERED: IPRATROPIUM BROM 0.5 MG/2.5ML INH SOL NEB PRN (19:45)
[2022-01-09] MEDS ORDERED: ATORVASTATIN 20 MG TAB PO SCH (22:00)
[2022-01-09 22:06] VITALS: BP_SYST 142
[2022-01-09] MEDS: CARVEDILOL 12.5 MG TAB PO SCH (22:22)
[2022-01-09] MEDS: ATORVASTATIN 20 MG TAB PO SCH (22:23)
[2022-01-10] VITALS (8 sets, daily range): BP systolic 107–131; BP diastolic 29–65
[2022-01-10 05:57] LABS: Basophils # (auto) 0 10 ^3/uL (0-0.2); Basophils % (auto) 0.4 % (0.0-2.0); Eosinophils # (auto) 0 10 ^3/uL (0-0.8); Eosinophils % (auto) 0.2 % (0.0-7.0); Hematocrit 26.2 % (36.0-46.0); Hemoglobin 8.6 g/dL (12.2-16.2); Lymphocytes # (auto) 0.7 10 ^3/uL (0.4-5.4); Lymphocytes % (auto) 9.8 % (10.0-50.0); Mean Corpuscular Hemoglobin 30.6 pg (28.0-32.0); Mean Corpuscular Hgb Conc. 32.9 g/dL (32.0-36.0); Mean Corpuscular Volume 92.9 fL (80.0-100.0); Monocytes # (auto) 0.7 10 ^3/uL (0-1.3); Monocytes % (auto) 9.4 % (0.0-12.0); Neutrophils # (auto) 5.7 10 ^3/uL (1.6-8.6); Neutrophils % (auto) 80.2 % (37.0-80.0); Red Blood Cells 2.82 10^6/uL (4.0-5.20); Red Cell Distribution Width 15.7 % (11.8-14.3); White Blood Cell 7.1 10^3/uL (4.4-10.8)
[2022-01-10 06:31] LABS: Potassium 4.8 mmol/L (3.5-5.1)
[2022-01-10 06:32] LABS: Albumin 3.1 g/dL (3.4-5.0); Bilirubin, Total 0.5 mg/dL (0.2-1.0); Calcium 8.6 mg/dL (8.5-10.1); Total Protein 6.5 g/dL (6.4-8.2)
[2022-01-10] MEDS: FUROSEMIDE 20 MG/2 ML VIAL IV SCH (09:00)
[2022-01-10] MEDS: CARVEDILOL 12.5 MG TAB PO SCH ×2 (09:35→21:16)
[2022-01-10] MEDS: PANTOPRAZOLE 40 MG/10 ML VIAL INJ IV SCH (09:44)
[2022-01-10] MEDS: ENOXAPARIN SOD 40 MG/0.4 ML SYRINGE SC SCH (09:44)
[2022-01-10] MEDS: hydrOXYchloroQUINE SULFATE 200 MG TAB PO SCH (09:45)
[2022-01-10] MEDS ORDERED: LISINOPRIL 10 MG TAB PO SCH (10:00)
[2022-01-10] MEDS ORDERED: predniSONE 20 MG TAB PO ONE (13:45)
[2022-01-10] MEDS ORDERED: DOXYCYCLINE 100 MG TAB/CAP PO ONE (13:45)
[2022-01-10] MEDS: ALBUTEROL SULF 2.5 MG/0.5ML(0.5%) NEB SOLN NEB SCH ×3 (14:00→22:22)
[2022-01-10] MEDS: IPRATROPIUM BROM 0.5 MG/2.5ML INH SOL NEB SCH ×3 (14:00→22:22)
[2022-01-10] MEDS: CITALOPRAM HYDROBR 20 MG TAB PO SCH (15:46)
[2022-01-10] MEDS ORDERED: BUSP5TAB51 PO (17:05)
[2022-01-10] MEDS ORDERED: CARV12.544 PO (17:05)
[2022-01-10] MEDS ORDERED: amLODIPine BESYLATE 5 MG TAB PO SCH (18:00)
[2022-01-10] MEDS: ATORVASTATIN 20 MG TAB PO SCH (21:15)
[2022-01-10] MEDS: DOXYCYCLINE 100 MG TAB/CAP PO SCH (21:16)
[2022-01-10] MEDS ORDERED: LORazepam 2MG/ML-1ML VIAL IV PRN (21:30)
[2022-01-10] MEDS: TEMAZEPAM 15 MG CAP PO PRN (23:00)
[2022-01-10 23:15] LABS: Free T4 (Free Thyroxine) 1.53 ng/dL (0.89-1.76)
[2022-01-10 23:16] LABS: Folate (Folic Acid) > 24.00 ng/mL (5.38-24)
[2022-01-11 05:00] VITALS: BP 125/44
[2022-01-11 06:36] LABS: Basophils # (auto) 0 10 ^3/uL (0-0.2); Basophils % (auto) 0.1 % (0.0-2.0); Eosinophils # (auto) 0 10 ^3/uL (0-0.8); Hemoglobin 7.9 g/dL (12.2-16.2); Monocytes # (auto) 0.3 10 ^3/uL (0-1.3)
[2022-01-11 06:39] LABS: Hematocrit 23.6 % (36.0-46.0); Lymphocytes # (auto) 0.5 10 ^3/uL (0.4-5.4); Mean Corpuscular Hemoglobin 30.7 pg (28.0-32.0); Mean Corpuscular Hgb Conc. 33.3 g/dL (32.0-36.0); Mean Corpuscular Volume 92.2 fL (80.0-100.0); Neutrophils % (auto) 85.9 % (37.0-80.0); Red Blood Cells 2.56 10^6/uL (4.0-5.20); Red Cell Distribution Width 15.5 % (11.8-14.3); White Blood Cell 5.8 10^3/uL (4.4-10.8)
[2022-01-11 06:58] LABS: Potassium 5.3 mmol/L (3.5-5.1)
[2022-01-11 07:08] LABS: Albumin 2.7 g/dL (3.4-5.0); BUN/Creatinine Ratio 32.4; Bilirubin, Total 0.6 mg/dL (0.2-1.0); Calcium 8.8 mg/dL (8.5-10.1); Total Protein 6.4 g/dL (6.4-8.2)
[2022-01-11 07:20] LABS: % Iron Saturation 10.9 % (15-50)
[2022-01-11 08:44] LABS: Ferritin 112.6 ng/mL (10-322)
[2022-01-11 08:53] VITALS: BP 159/52
[2022-01-11] MEDS: ENOXAPARIN SOD 40 MG/0.4 ML SYRINGE SC SCH (09:19)
[2022-01-11] MEDS: predniSONE 20 MG TAB PO SCH (09:21)
[2022-01-11] MEDS: DOXYCYCLINE 100 MG TAB/CAP PO SCH ×2 (09:22→21:57)
[2022-01-11] MEDS: hydrOXYchloroQUINE SULFATE 200 MG TAB PO SCH (09:22)
[2022-01-11] MEDS: CARVEDILOL 12.5 MG TAB PO SCH ×2 (09:23→22:00)
[2022-01-11] MEDS: FUROSEMIDE 40 MG TAB PO SCH (09:25)
[2022-01-11] MEDS: ISOSORBIDE MONONITRATE ER 60 MG TAB PO SCH (09:25)
[2022-01-11] MEDS: CITALOPRAM HYDROBR 20 MG TAB PO SCH (09:26)
[2022-01-11] MEDS: ALBUTEROL SULF 2.5 MG/0.5ML(0.5%) NEB SOLN NEB SCH ×7 (09:56→21:29)
[2022-01-11] MEDS: IPRATROPIUM BROM 0.5 MG/2.5ML INH SOL NEB SCH ×7 (09:56→21:29)
[2022-01-11 12:46] VITALS: BP 115/35
[2022-01-11 16:30] VITALS: BP 136/45
[2022-01-11] MEDS: ATORVASTATIN 20 MG TAB PO SCH (21:56)
[2022-01-11] MEDS: TEMAZEPAM 15 MG CAP PO PRN (21:57)
[2022-01-11 22:14] VITALS: BP 129/46
[2022-01-12 05:00] VITALS: BP 165/60
[2022-01-12] MEDS: IPRATROPIUM BROM 0.5 MG/2.5ML INH SOL NEB SCH ×5 (06:09→22:10)
[2022-01-12] MEDS: ALBUTEROL SULF 2.5 MG/0.5ML(0.5%) NEB SOLN NEB SCH ×5 (06:09→22:10)
[2022-01-12 07:30] VITALS: BP 99/60
[2022-01-12 07:56] LABS: Basophils # (auto) 0 10 ^3/uL (0-0.2); Basophils % (auto) 0.1 % (0.0-2.0); Eosinophils # (auto) 0 10 ^3/uL (0-0.8); Hematocrit 24.8 % (36.0-46.0); Hemoglobin 8.3 g/dL (12.2-16.2); Lymphocytes # (auto) 0.9 10 ^3/uL (0.4-5.4); Mean Corpuscular Volume 91.9 fL (80.0-100.0); Monocytes # (auto) 0.7 10 ^3/uL (0-1.3); Neutrophils % (auto) 76.4 % (37.0-80.0); Nucleated Red Blood Cells % 0.1 %
[2022-01-12 08:00] LABS: Lymphocytes % (auto) 12.7 % (10.0-50.0); Mean Corpuscular Hemoglobin 30.9 pg (28.0-32.0); Mean Corpuscular Hgb Conc. 33.7 g/dL (32.0-36.0); Monocytes % (auto) 10.8 % (0.0-12.0); Neutrophils # (auto) 5.2 10 ^3/uL (1.6-8.6); Red Cell Distribution Width 15.5 % (11.8-14.3); White Blood Cell 6.7 10^3/uL (4.4-10.8)
[2022-01-12 08:28] LABS: Albumin 2.9 g/dL (3.4-5.0); BUN/Creatinine Ratio 36.9; Calcium 9.1 mg/dL (8.5-10.1); Potassium 5.1 mmol/L (3.5-5.1)
[2022-01-12 08:31] LABS: Bilirubin, Total 0.6 mg/dL (0.2-1.0); Total Protein 6.6 g/dL (6.4-8.2)
[2022-01-12] MEDS: predniSONE 20 MG TAB PO SCH (08:49)
[2022-01-12] MEDS: CARVEDILOL 12.5 MG TAB PO SCH ×2 (08:51→21:44)
[2022-01-12] MEDS: DOXYCYCLINE 100 MG TAB/CAP PO SCH ×2 (08:54→21:45)
[2022-01-12] MEDS: ISOSORBIDE MONONITRATE ER 60 MG TAB PO SCH (08:54)
[2022-01-12] MEDS: FUROSEMIDE 40 MG TAB PO SCH (08:55)
[2022-01-12] MEDS: ENOXAPARIN SOD 40 MG/0.4 ML SYRINGE SC SCH (08:56)
[2022-01-12] MEDS: CITALOPRAM HYDROBR 20 MG TAB PO SCH (08:56)
[2022-01-12] MEDS: hydrOXYchloroQUINE SULFATE 200 MG TAB PO SCH (08:57)
[2022-01-12 09:00] VITALS: BP 176/67
[2022-01-12 12:00] VITALS: BP 171/58
[2022-01-12] MEDS ORDERED: POLYETHYLENE GLYCOL 17 GM PWDR PO PRN (14:30)
[2022-01-12 16:58] VITALS: BP 163/58
[2022-01-12 21:10] VITALS: BP 164/58
[2022-01-12] MEDS: ATORVASTATIN 20 MG TAB PO SCH (21:44)
[2022-01-12] MEDS: SENNA 8.6 MG TAB PO SCH (21:45)
[2022-01-13 05:00] VITALS: BP 146/64
[2022-01-13 06:14] LABS: Basophils # (auto) 0 10 ^3/uL (0-0.2); Basophils % (auto) 0.1 % (0.0-2.0); Eosinophils # (auto) 0 10 ^3/uL (0-0.8); Hemoglobin 8.4 g/dL (12.2-16.2); Monocytes # (auto) 0.6 10 ^3/uL (0-1.3); Neutrophils # (auto) 4.8 10 ^3/uL (1.6-8.6); White Blood Cell 6.1 10^3/uL (4.4-10.8)
[2022-01-13 06:18] LABS: Hematocrit 24.8 % (36.0-46.0); Lymphocytes # (auto) 0.6 10 ^3/uL (0.4-5.4); Lymphocytes % (auto) 10.6 % (10.0-50.0); Mean Corpuscular Hemoglobin 30.9 pg (28.0-32.0); Mean Corpuscular Hgb Conc. 33.7 g/dL (32.0-36.0); Mean Corpuscular Volume 91.7 fL (80.0-100.0); Monocytes % (auto) 10.4 % (0.0-12.0); Neutrophils % (auto) 78.9 % (37.0-80.0); Red Cell Distribution Width 15.7 % (11.8-14.3)
[2022-01-13] MEDS: IPRATROPIUM BROM 0.5 MG/2.5ML INH SOL NEB SCH ×5 (06:23→22:22)
[2022-01-13] MEDS: ALBUTEROL SULF 2.5 MG/0.5ML(0.5%) NEB SOLN NEB SCH ×5 (06:23→22:22)
[2022-01-13 06:32] LABS: Albumin 2.7 g/dL (3.4-5.0); Calcium 9.1 mg/dL (8.5-10.1); Potassium 5.3 mmol/L (3.5-5.1)
[2022-01-13 06:37] LABS: BUN/Creatinine Ratio 39.7; Bilirubin, Total 0.5 mg/dL (0.2-1.0); Total Protein 6.2 g/dL (6.4-8.2)
[2022-01-13 07:05] VITALS: BP 146/64
[2022-01-13 08:00] VITALS: BP 171/69
[2022-01-13] MEDS: predniSONE 20 MG TAB PO SCH (10:33)
[2022-01-13] MEDS: DOXYCYCLINE 100 MG TAB/CAP PO SCH ×2 (10:33→21:26)
[2022-01-13] MEDS: CITALOPRAM HYDROBR 20 MG TAB PO SCH (10:34)
[2022-01-13] MEDS: hydrOXYchloroQUINE SULFATE 200 MG TAB PO SCH (10:34)
[2022-01-13] MEDS: ENOXAPARIN SOD 40 MG/0.4 ML SYRINGE SC SCH (10:37)
[2022-01-13] MEDS: ISOSORBIDE MONONITRATE ER 60 MG TAB PO SCH (10:40)
[2022-01-13] MEDS: FUROSEMIDE 40 MG TAB PO SCH (10:40)
[2022-01-13] MEDS: CARVEDILOL 12.5 MG TAB PO SCH ×2 (10:41→21:26)
[2022-01-13 13:06] VITALS: BP 125/44
[2022-01-13] MEDS ORDERED: FUROSEMIDE 40 MG TAB PO ONE (15:15)
[2022-01-13] MEDS: ATORVASTATIN 20 MG TAB PO SCH (21:26)
[2022-01-13] MEDS: SENNA 8.6 MG TAB PO SCH (21:26)
[2022-01-13] MEDS: MELATONIN 5 MG TAB PO PRN (21:28)
[2022-01-13 22:00] VITALS: BP 151/60
[2022-01-14 05:00] VITALS: BP 143/48
[2022-01-14] MEDS: IPRATROPIUM BROM 0.5 MG/2.5ML INH SOL NEB SCH ×5 (06:23→22:53)
[2022-01-14] MEDS: ALBUTEROL SULF 2.5 MG/0.5ML(0.5%) NEB SOLN NEB SCH ×5 (06:23→22:53)
[2022-01-14 06:43] LABS: Basophils # (auto) 0 10 ^3/uL (0-0.2); Eosinophils # (auto) 0 10 ^3/uL (0-0.8); Mean Corpuscular Hemoglobin 30.7 pg (28.0-32.0); Mean Corpuscular Hgb Conc. 33.5 g/dL (32.0-36.0); Monocytes # (auto) 0.6 10 ^3/uL (0-1.3); Neutrophils # (auto) 4.4 10 ^3/uL (1.6-8.6); Red Blood Cells 2.61 10^6/uL (4.0-5.20)
[2022-01-14 06:46] LABS: Lymphocytes # (auto) 0.9 10 ^3/uL (0.4-5.4); Lymphocytes % (auto) 14.5 % (10.0-50.0); Mean Corpuscular Volume 91.8 fL (80.0-100.0); Monocytes % (auto) 10.8 % (0.0-12.0); Neutrophils % (auto) 74.7 % (37.0-80.0); Red Cell Distribution Width 15.8 % (11.8-14.3); White Blood Cell 5.9 10^3/uL (4.4-10.8)
[2022-01-14 07:18] LABS: Albumin 2.7 g/dL (3.4-5.0); BUN/Creatinine Ratio 39.1; Bilirubin, Total 0.6 mg/dL (0.2-1.0); Calcium 8.9 mg/dL (8.5-10.1); Potassium 4.6 mmol/L (3.5-5.1); Total Protein 5.9 g/dL (6.4-8.2)
[2022-01-14 09:00] VITALS: BP 116/84
[2022-01-14] MEDS: hydrOXYchloroQUINE SULFATE 200 MG TAB PO SCH (09:12)
[2022-01-14] MEDS: ENOXAPARIN SOD 40 MG/0.4 ML SYRINGE SC SCH (09:12)
[2022-01-14] MEDS: DOXYCYCLINE 100 MG TAB/CAP PO SCH ×2 (09:13→23:40)
[2022-01-14] MEDS: CARVEDILOL 12.5 MG TAB PO SCH ×2 (09:13→23:39)
[2022-01-14] MEDS: FUROSEMIDE 40 MG TAB PO SCH (09:14)
[2022-01-14] MEDS: CITALOPRAM HYDROBR 20 MG TAB PO SCH (09:15)
[2022-01-14] MEDS: ISOSORBIDE MONONITRATE ER 60 MG TAB PO SCH (09:15)
[2022-01-14 13:00] VITALS: BP 114/63
[2022-01-14] MEDS ORDERED: FURO40TA4 PO (13:10)
[2022-01-14] MEDS ORDERED: FER325T PO (13:10)
[2022-01-14 13:59] VITALS: BP 114/63
[2022-01-14 16:50] VITALS: BP 135/54
[2022-01-14 22:00] VITALS: BP 142/40
[2022-01-14] MEDS: ATORVASTATIN 20 MG TAB PO SCH (23:39)
[2022-01-14] MEDS: SENNA 8.6 MG TAB PO SCH (23:40)
[2022-01-14] MEDS: MELATONIN 5 MG TAB PO PRN (23:41)
[2022-01-15 05:00] VITALS: BP 134/41
[2022-01-15 06:23] LABS: Albumin 2.8 g/dL (3.4-5.0); Calcium 8.9 mg/dL (8.5-10.1); Potassium 4.5 mmol/L (3.5-5.1)
[2022-01-15 06:24] LABS: BUN/Creatinine Ratio 37.1
[2022-01-15 06:26] LABS: Bilirubin, Total 0.4 mg/dL (0.2-1.0); Total Protein 5.7 g/dL (6.4-8.2)
[2022-01-15] MEDS: ALBUTEROL SULF 2.5 MG/0.5ML(0.5%) NEB SOLN NEB SCH ×2 (06:33→11:12)
[2022-01-15] MEDS: IPRATROPIUM BROM 0.5 MG/2.5ML INH SOL NEB SCH ×2 (06:33→11:12)
[2022-01-15 06:40] LABS: Basophils # (auto) 0 10 ^3/uL (0-0.2); Basophils % (auto) 0.2 % (0.0-2.0); Eosinophils # (auto) 0.1 10 ^3/uL (0-0.8); Hematocrit 25.8 % (36.0-46.0); Hemoglobin 8.7 g/dL (12.2-16.2); Lymphocytes % (auto) 14.1 % (10.0-50.0); Mean Corpuscular Hemoglobin 30.9 pg (28.0-32.0); Mean Corpuscular Hgb Conc. 33.7 g/dL (32.0-36.0); Mean Corpuscular Volume 91.7 fL (80.0-100.0); Monocytes # (auto) 0.9 10 ^3/uL (0-1.3); Neutrophils # (auto) 4.8 10 ^3/uL (1.6-8.6); Neutrophils % (auto) 70.7 % (37.0-80.0); Red Blood Cells 2.82 10^6/uL (4.0-5.20); Red Cell Distribution Width 15.9 % (11.8-14.3); White Blood Cell 6.8 10^3/uL (4.4-10.8)
[2022-01-15 09:00] VITALS: BP 118/58
[2022-01-15] MEDS: CITALOPRAM HYDROBR 20 MG TAB PO SCH (09:21)
[2022-01-15] MEDS: ISOSORBIDE MONONITRATE ER 60 MG TAB PO SCH (09:22)
[2022-01-15] MEDS: FUROSEMIDE 40 MG TAB PO SCH (09:23)
[2022-01-15] MEDS: DOXYCYCLINE 100 MG TAB/CAP PO SCH (09:23)
[2022-01-15] MEDS: CARVEDILOL 12.5 MG TAB PO SCH (09:24)
[2022-01-15] MEDS: hydrOXYchloroQUINE SULFATE 200 MG TAB PO SCH (09:25)
[2022-01-15] MEDS: ENOXAPARIN SOD 40 MG/0.4 ML SYRINGE SC SCH (09:25)
[2022-01-15 10:36] VITALS: BP 118/58
== END 2022-01-15 12:40 | DRG 189 ==
LOC: EDBD 04:47 → ER 04:47 → TELE 09:48 → TELE-WESTW 18:27
PROVIDERS: ADMIT Nurse Practitioner Family; ATTEND Student in an Organized Health Care Education/Training Program
DX: J96.21 Acute and chronic respiratory failure with hypoxia (principal); G93.41 Metabolic encephalopathy; J44.1 Chronic obstructive pulmonary disease with (acute) exacerbation; E87.29 Other acidosis; E87.1 Hypo-osmolality and hyponatremia; G93.1 Anoxic brain damage, not elsewhere classified; I50.32 Chronic diastolic (congestive) heart failure; J96.22 Acute and chronic respiratory failure with hypercapnia; I11.0 Hypertensive heart disease with heart failure; K21.9 Gastro-esophageal reflux disease without esophagitis; D64.9 Anemia, unspecified; Z20.822 Contact with and (suspected) exposure to COVID-19; E61.1 Iron deficiency; F02.80 Dementia in other diseases classified elsewhere, unspecified severity, without behavioral disturbance, psychotic disturbance, mood disturbance, and anxiety; G30.9 Alzheimer's disease, unspecified; Z90.49 Acquired absence of other specified parts of digestive tract; Z79.899 Other long term (current) drug therapy; Z82.0 Family history of epilepsy and other diseases of the nervous system; Z82.5 Family history of asthma and other chronic lower respiratory diseases; Z90.710 Acquired absence of both cervix and uterus; Z88.2 Allergy status to sulfonamides; Z88.8 Allergy status to other drugs, medicaments and biological substances
CPT/HCPCS: 36415; 36600; 70450; 71045; 80053; 80061; 81001; 82607; 82728; 82746; 82805; 83540; 83550; 83735; 83880; 84439; 84443; 84484; 85025; 87426; 87804; 92610; 93005; 93306; 94640; 95819; 96361; 96372; 96374; 96375; 97110; 97116; 97163; C9113; G0378; J2405